=== PATIENT | female | born 1990 | race Caucasian/White ===

== ENCOUNTER 2019-02-02 17:40 | Emergency (ER) | payer BC ==
[2019-02-02] MEDS ORDERED: Albuterol/Ipratropium 3.0-0.5 MG/3 ML Neb Soln NEB ONE (17:45)
--- NOTE | 2019-02-02 17:47 | EDM.PDOC ---
ED HPI GENERAL MEDICAL PROBLEM - General Chief Complaint: Respiratory Problem Stated Complaint: PINK EYE & TIGHTNESS IN CHEST Time Seen by Provider: 02/02/19 17:42 - History of Present Illness INITIAL COMMENTS - FREE TEXT/NARRATIVE: HISTORY AND PHYSICAL: History of present illness: Patient 28-year-old female presents with a concern of pinkeye cough and congestion with wheezing patient is a smoker she denies fever chills nausea vomiting or other complaints. Review of systems: As per history of present illness and below otherwise all systems reviewed and negative. Past medical history: As per history of present illness and as reviewed below otherwise noncontributory. Surgical history: As per history of present illness and as reviewed below otherwise noncontributory. Social history: No reported history of drug or alcohol abuse. Family history: As per history of present illness and as reviewed below otherwise noncontributory. Physical exam: HEENT: Atraumatic, normocephalic, pupils reactive, injected right conjunctiva anterior chamber clear no evidence of corneal abrasion foreign-body no scleral icterus, mucous membranes moist, throat clear, neck supple, nontender, trachea midline. Lungs: Inspiratory next grew wheezing noted no crackles no rhonchi, breath sounds equal bilaterally, chest nontender. Heart: S1S2, regular, negative for clicks, rubs, or JVD. Abdomen: Soft, nondistended, nontender. Negative for masses or hepatosplenomegaly. Negative for costovertebral tenderness. Pelvis: Stable nontender. Genitourinary: Deferred. Rectal: Deferred. Extremities: Atraumatic, negative for cords or calf pain. Neurovascular unremarkable. Neuro: Awake, alert, oriented. Cranial nerves II through XII unremarkable. Cerebellum unremarkable. Motor and sensory unremarkable throughout. Exam nonfocal. Diagnostics: EKG Therapeutics: Albuterol ipratropium nebulizer Impression: #1 trach of bronchitis #2 right conjunctiva Definitive disposition and diagnosis as appropriate pending reevaluation and review of above. - Related Data Allergies Allergy/AdvReac Type Severity Reaction Status Date / Time cefaclor [From Ceclor] Allergy Rash Verified 02/02/19 17:43 cephalexin monohydrate Allergy Rash Verified 02/02/19 17:43 [From Keflex] Home Meds: Home Meds . 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: Musculoskeletal History: Reports: None Neurological History: Reports: None Psychiatric History: Reports: None Endocrine/Metabolic History: Reports: None Hematologic History: Reports: None (Pt denies any personal or family hx of bleeding or clotting problems) Oncologic (Cancer) History: Reports: None Dermatologic History: Reports: None - Infectious Disease History Infectious Disease History: Reports: Chicken Pox - Past Surgical History Female Surgical History: Reports: Other (See Below) Social & Family History - Family History Family Medical History: Noncontributory ED ROS GENERAL - Review of Systems Review Of Systems: ROS reveals no pertinent complaints other than HPI. ED EXAM, GENERAL - Physical Exam Exam: See Below (See dictation) Course - Orders/Labs/Meds Orders: Active Orders 24 hr Category Date Time Status EKG Documentation Completion [RC] STAT Care 02/02/19 17:43 Ordered Departure - Departure Time of Disposition: 17:46 Disposition: Home, Self-Care 01 Condition: Good Clinical Impression: Conjunctivitis, Tracheobronchitis - Discharge Information Additional Instructions: The following information is given to patients seen in the emergency department who are being discharged to home. This information is to outline your options for follow-up care. We provide all patients seen in our emergency department with a follow-up referral. The need for follow-up, as well as the timing and circumstances, are variable depending upon the specifics of your emergency department visit. If you don't have a primary care physician on staff, we will provide you with a referral. We always advise you to contact your personal physician following an emergency department visit to inform them of the circumstance of the visit and for follow-up with them and/or the need for any referrals to a consulting specialist. The emergency department will also refer you to a specialist when appropriate. This referral assures that you have the opportunity for followup care with a specialist. All of these measure are taken in an effort to provide you with optimal care, which includes your followup. Under all circumstances we always encourage you to contact your private physician who remains a resource for coordinating your care. When calling for followup care, please make the office aware that this follow-up is from your recent emergency room visit. If for any reason you are refused follow-up, please contact the [facility] emergency department at and asked to speak to the emergency department charge nurse. JUAN [facility] [address] [place] [id number] Tobrex ophthalmic drops as directed Z-Brennan albuterol as prescribed follow-up primary care call schedule routine appointment return as needed as discussed - My Orders Last 24 Hours: My Active Orders 02/02/19 17:43 EKG Documentation Completion [RC] STAT - Assessment/Plan Last 24 Hours: My Active Orders 02/02/19 17:43 EKG Documentation Completion [RC] STAT
[2019-02-02 19:16] VITALS: BP 139/72
== END 2019-02-02 18:41 | disposition home or self-care (01) ==
LOC: MW.ED 17:40
DX: J40 Bronchitis, not specified as acute or chronic (principal); H10.9 Unspecified conjunctivitis; Z88.8 Allergy status to other drugs, medicaments and biological substances; Z88.1 Allergy status to other antibiotic agents
CPT/HCPCS: 93005; 94640; 99283-25; J7620-GY

== ENCOUNTER 2021-04-18 13:38 | Emergency (ER) | payer BC, MEDICAID ==
[2021-04-18] MEDS ORDERED: Ondansetron 4 MG Tab.DIS PO ONE (14:32)
[2021-04-18] MEDS ORDERED: Codeine/Promethazine 10-6.25 MG/5 ML Syrup 5 ML UD Cup PO STA (14:37)
--- NOTE | 2021-04-18 15:14 | EDM.PDOC ---
ED HPI GENERAL MEDICAL PROBLEM - General Chief Complaint: General Stated Complaint: CHILLS,NAUSEATED,COUGH,LIGHTHEADED Time Seen by Provider: 04/18/21 13:45 Source of Information: Reports: Patient History Limitations: Reports: No Limitations - History of Present Illness INITIAL COMMENTS - FREE TEXT/NARRATIVE: HISTORY AND PHYSICAL: History of present illness: Patient is a 30-year-old female who presents to the emergency room with complaints of nausea, cough, body aches and chills. She states she has had these symptoms over the past 3 days, yesterday noted she had a fever of 103. She has been using [id number] cough and cold medication without much relief. She does have some concern of COVID-19. She has not had this nor been vaccinated. Patient denies any change in vision, syncope or near syncope. Denies any chest pain, back pain, shortness of breath or hemoptysis. Denies any abdominal pain, vomiting, diarrhea, constipation or dysuria. Has not noted any blood in urine or stool. She has no concern for . Patient has been eating and drinking appropriately. Review of systems: As per history of present illness and below otherwise all systems reviewed and negative. Past medical history: As per history of present illness and as reviewed below otherwise noncontributory. Surgical history: As per history of present illness and as reviewed below otherwise noncontributory. Social history: See social history for further information Family history: As per history of present illness and as reviewed below otherwise noncontributory. Physical exam: General: Well developed and well nourished. Alert and orientated x 3. Nontoxic in appearance and in no acute distress. Vital signs are stable and have been reviewed by me. Nursing notes were reviewed. HEENT: Atraumatic, normocephalic, pupils equal and reactive bilaterally, negative for conjunctival pallor or scleral icterus, mucous membranes moist, TMs normal bilaterally, throat clear, neck supple, nontender, trachea midline. No drooling or trismus noted. No meningeal signs. No hot potato voice noted. Lungs: Slightly diminished to auscultation bilaterally. No wheezes, rales, or rhonchi. Chest nontender. Normal work of breathing, no accessory muscles used. Heart: S1S2, regular rate and rhythm without overt murmur, gallops, or rubs. No JVD. No peripheral edema Abdomen: Soft, nondistended, nontender. Normoactive bowel sounds. Negative for masses or costovertebral tenderness. Skin: Intact, warm, dry. No lesions or rashes noted. Hematologic: No petechiae or purpra. Mucosa appropriate color and normal nail bed color and refill. Extremities: Atraumatic, moves all extremities per self without difficulty or deficits, negative for cords or calf pain. Neurovascular unremarkable. Neuro: Awake, alert, oriented. Cranial nerves II through XII unremarkable. Cerebellum unremarkable. Motor and sensory unremarkable throughout. Exam nonfocal. Psychiatric: Mood and affect are appropriate. Normal thought process. Answering questions appropriately. Notes: *This patient was seen and evaluated during the 2019 SARS-CoV-2 novel coronavirus pandemic period. Community viral transmission is ongoing at time of this encounter and the emergency department is operating under pandemic response procedures. Patient is a 30-year-old female who presents to the emergency room with respiratory type symptoms x3 days. We will do some basic lab work and swab for COVID-19. Lab work is unremarkable. Chest x-ray shows no acute findings. I do have concern of COVID-19, did request if she still symptomatic on Tuesday that she gets retested at the clinic. I have talked with the patient about today's findings, in addition to providing specific details for plan of care. Reassessment at the time of disposition demonstrates that the patient is in no acute distress. The patient is stable for discharge, counseling was provided and we discussed in great detail signs and symptoms that would prompt them to return to the Emergency Department. Medication, follow up and supportive care measures were reviewed and discussed. Voices understanding and is agreeable to plan of care. Denies any further questions or concerns at this time. Diagnostics: CBC, CMP, COVID-19, UA, chest x-ray Therapeutics: Phenergan with codeine Prescription: Z-Brennan, Phenergan with codeine Impression: Bronchitis Plan: 1. You were evaluated today on an emergent basis. Your lab work and chest x-ray are unremarkable. I would like you to be retested for COVID-19 on Tuesday if you continue to have symptoms as I am concerned you have a false negative at this time. Continue to wear your mask, good handwashing and abstain from large crowds until you have this test done. 2. You can alternate Tylenol and ibuprofen as needed for pain and fever management. 3. We encourage you to follow up with your primary care provider and/or recommended specialist in the next few days for re-evaluation and further care/management. 4. If your symptoms should worsen, new symptoms develop or any of the signs and symptoms we discussed should arise please return to the emergency room or call 911 (if needed). Definitive disposition and diagnosis as appropriate pending reevaluation and review of above. Headache Pain Score (Numeric/FACES): 7 - Related Data Allergies Allergy/AdvReac Type Severity Reaction Status Date / Time cefaclor [From Ceclor] Allergy Rash Verified 04/18/21 14:39 cephalexin monohydrate Allergy Rash Verified 04/18/21 14:39 [From Keflex] Home Meds: Home Meds . 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: Musculoskeletal History: Reports: None Neurological History: Reports: None Psychiatric History: Reports: None Endocrine/Metabolic History: Reports: None Hematologic History: Reports: None Oncologic (Cancer) History: Reports: None Dermatologic History: Reports: None - Infectious Disease History Infectious Disease History: Reports: Chicken Pox - Past Surgical History Head Surgeries/Procedures: Reports: None HEENT Surgical History: Reports: None Cardiovascular Surgical History: Reports: None Respiratory Surgical History: Reports: None GI Surgical History: Reports: Cholecystectomy Female Surgical History: Reports: Other (See Below) Other Female Surgeries/Procedures: cervical cerclage x2 Endocrine Surgical History: Reports: None Neurological Surgical History: Reports: None Musculoskeletal Surgical History: Reports: None Oncologic Surgical History: Reports: None Dermatological Surgical History: Reports: None Social & Family History - Family History Family Medical History: No Pertinent Family History - Tobacco Use Tobacco Use Status *Q: Never Tobacco User Second Hand Smoke Exposure: No - Caffeine Use Caffeine Use: Reports: Coffee - Recreational Drug Use Recreational Drug Use: No ED ROS GENERAL - Review of Systems Review Of Systems: Comprehensive ROS is negative, except as noted in HPI. ED EXAM, GENERAL - Physical Exam Exam: See Below (See dictation) Course - Vital Signs Last Recorded V/S: Last Vital Signs Temp 97.6 F 04/18/21 14:39 Pulse 76 04/18/21 16:17 Resp 16 04/18/21 16:17 BP 141/70 H 04/18/21 16:17 Pulse Ox 98 04/18/21 16:17 - Orders/Labs/Meds Labs: Laboratory Tests 04/18/21 04/18/21 04/18/21 Range/Units 14:46 14:55 14:55 WBC 7.45 (4.0-11.0) K/uL RBC 4.45 (4.30-5.90) M/uL Hgb 14.8 (12.0-16.0) g/dL Hct 44.1 (36.0-46.0) % MCV 99.1 H (80.0-98.0) fL MCH 33.3 H (27.0-32.0) pg MCHC 33.6 (31.0-37.0) g/dL RDW Std Deviation 44.9 (28.0-62.0) fl RDW Coeff of Imani 12 (11.0-15.0) % Plt Count 288 (150-400) K/uL MPV 10.50 (7.40-12.00) fL Neut % (Auto) 52.8 (48.0-80.0) % Lymph % (Auto) 33.7 (16.0-40.0) % Kimble % (Auto) 6.7 (0.0-15.0) % Eos % (Auto) 6.4 (0.0-7.0) % Baso % (Auto) 0.4 (0.0-1.5) % Neut # (Auto) 3.9 (1.4-5.7) K/uL Lymph # (Auto) 2.5 H (0.6-2.4) K/uL Kimble # (Auto) 0.5 (0.0-0.8) K/uL Eos # (Auto) 0.5 (0.0-0.7) K/uL Baso # (Auto) 0.0 (0.0-0.1) K/uL Nucleated RBC % 0.0 /100WBC Nucleated RBCs # 0 K/uL Sodium 136 (136-145) mmol/L Potassium 4.3 (3.5-5.1) mmol/L Chloride 104 (98-107) mmol/L Carbon Dioxide 24.5 (21.0-32.0) mmol/L BUN 11 (7.0-18.0) mg/dL Creatinine 0.8 (0.6-1.0) mg/dL Est Cr Clr Drug Dosing 88.79 mL/min Estimated GFR (MDRD) > 60.0 ml/min Glucose 114 H (74-106) mg/dL Calcium 8.3 L (8.5-10.1) mg/dL Total Bilirubin 0.2 (0.2-1.0) mg/dL AST 18 (15-37) IU/L ALT 36 (14-63) IU/L Alkaline Phosphatase 91 (46-116) U/L Total Protein 7.4 (6.4-8.2) g/dL Albumin 3.6 (3.4-5.0) g/dL Globulin 3.8 (2.6-4.0) g/dL Albumin/Globulin Ratio 0.9 (0.9-1.6) Influenza Type A RNA NEGATIVE (NEGATIVE) Influenza Type B RNA NEGATIVE (NEGATIVE) SARS-CoV-2 RNA (AMANDA) NEGATIVE (NEGATIVE) Meds: Medications Discontinued Medications Generic Name Dose Route Start Last Admin Trade Name Freq PRN Reason Stop Dose Admin Ondansetron HCl 4 mg 04/18/21 14:32 04/18/21 14:48 Ondansetron 4 Mg Tab.Dis PO 04/18/21 14:33 4 mg ONETIME ONE Administration Promethazine HCl/Codeine 5 ml 04/18/21 14:37 04/18/21 14:48 Codeine/Promethazine 10-6.25 Mg/5 Ml Syrup 5 Ml Ud Cup PO 04/18/21 14:38 5 ml NOW STA Administration Departure - Departure Time of Disposition: 16:04 Disposition: Home, Self-Care 01 Clinical Impression: Bronchitis - Discharge Information Instructions: Acute Bronchitis, Adult, [id number] Referrals: PCP,None [Primary Care Provider] - Forms: ED Department Discharge Additional Instructions: The following information is given to patients seen in the emergency department who are being discharged to home. This information is to outline your options for follow-up care. We provide all patients seen in our emergency department with a follow-up referral. The need for follow-up, as well as the timing and circumstances, are variable depending upon the specifics of your emergency department visit. If you don't have a primary care physician on staff, we will provide you with a referral. We always advise you to contact your personal physician following an emergency department visit to inform them of the circumstance of the visit and for follow-up with them and/or the need for any referrals to a consulting specialist. The emergency department will also refer you to a specialist when appropriate. This referral assures that you have the opportunity for follow-up care with a specialist. All of these measure are taken in an effort to provide you with optimal care, which includes your follow-up. Under all circumstances we always encourage you to contact your private physician who remains a resource for coordinating your care. When calling for follow-up care, please make the office aware that this follow-up is from your recent emergency room visit. If for any reason you are refused follow-up, please contact the [facility] Emergency Department at and asked to speak to the emergency department charge nurse. [facility] [address] [place] [address] [place] [address] Thank you for choosing the [facility] emergency department in [place] for your medical needs today. It was a pleasure caring for you. Today you were seen in the emergency department for respiratory symptoms. 1. You were evaluated today on an emergent basis. Your lab work and chest x-ray are unremarkable. I would like you to be retested for COVID-19 on Tuesday if you continue to have symptoms as I am concerned you have a false negative at this time. Continue to wear your mask, good handwashing and abstain from large crowds until you have this test done. 2. You can alternate Tylenol and ibuprofen as needed for pain and fever management. 3. We encourage you to follow up with your primary care provider and/or recommended specialist in the next few days for re-evaluation and further care/management. 4. If your symptoms should worsen, new symptoms develop or any of the signs and symptoms we discussed should arise please return to the emergency room or call 911 (if needed). Sepsis Event Note (ED) - Evaluation Sepsis Screening Result: No Definite Risk - Focused Exam Vital Signs: Vital Signs Temp Pulse Resp BP Pulse Ox 04/18/21 16:17 76 16 141/70 H 98 04/18/21 14:39 97.6 F 81 17 141/87 H 97
[2021-04-18 15:33] LABS: BLOOD UREA NITROGEN,BUN 11 mg/dL (7.0-18.0); CARBON DIOXIDE,CO2 24.5 mmol/L (21.0-32.0); CHLORIDE,CL 104 mmol/L (98-107); GLUCOSE RANDOM 114 mg/dL (74-106); POTASSIUM,K 4.3 mmol/L (3.5-5.1); SODIUM,NA 136 mmol/L (136-145)
[2021-04-18 15:41] LABS: CORONAVIRUS COVID-19 NAA NEGATIVE (NEGATIVE); INFLUENZA A NAA NEGATIVE (NEGATIVE); INFLUENZA B NAA NEGATIVE (NEGATIVE)
[2021-04-18 16:18] VITALS: BP 141/70; PULSE 76
--- NOTE | 2021-04-18 16:39 | CR ---
INDICATION: Chest pain TECHNIQUE: Single view chest. FINDINGS: The lungs are clear. The heart, mediastinum and pulmonary vessels are of normal size. There is no evidence of pleural disease. IMPRESSION: Negative chest. Dictated by Barbara Mccollum MD @ 04/18/2021 4:37:[address] Barbara Mccollum @ Apr 18 2021 4:37PM
== END 2021-04-18 16:18 | disposition home or self-care (01) ==
LOC: MW.ED 13:38
DX: J40 Bronchitis, not specified as acute or chronic (principal); Z88.1 Allergy status to other antibiotic agents; Z20.822 Contact with and (suspected) exposure to COVID-19
CPT/HCPCS: 0240U; 36415; 71045; 80053; 85025; 99283; A9270

== ENCOUNTER 2021-11-02 06:33 | Day surgery (SDC) | payer MEDICAID ==
[~2021-11-02 06:33] MED LIST: Lactated Ringers 1,000 ML IV SCH; Sodium Chloride 0.9% 10 ML Syringe FLUSH PRN; Sodium Chloride 0.9% 2.5 ML Syringe FLUSH PRN; Sodium Chloride 0.9% 20 ML SDV IV PRN
[2021-11-02] MEDS ORDERED: Sodium Chloride 0.9% 10 ML Syringe FLUSH PRN (07:00)
[2021-11-02] MEDS ORDERED: Sodium Chloride 0.9% 20 ML SDV IV PRN (07:00)
[2021-11-02] MEDS ORDERED: Azithromycin 500 MG in Sodium Chloride 0.9% 250 ML IV ONE (07:00)
[2021-11-02] MEDS ORDERED: Sodium Chloride 0.9% 2.5 ML Syringe FLUSH PRN (07:00)
[2021-11-02] MEDS ORDERED: Ondansetron 4 MG/2 ML SDV IVPUSH PRN (07:40)
[2021-11-02] MEDS ORDERED: Albuterol 0.083% 2.5 MG/3 ML Neb Soln NEB PRN (07:40)
[2021-11-02] MEDS ORDERED: Naloxone 0.4 MG/ML SDV IVPUSH PRN (07:40)
[2021-11-02] MEDS ORDERED: Metoclopramide 10 MG/2 ML SDV IVPUSH PRN (07:40)
[2021-11-02] MEDS ORDERED: fentaNYL 100 MCG/2 ML SDV IVPUSH PRN (07:40)
--- NOTE | 2021-11-02 07:45 | PCM.PREANE ---
Preanesthetic Assessment - Anesthesia/Transfusion/Family Hx Anesthesia History: Prior Anesthesia Without Reaction Family History of Anesthesia Reaction: No Transfusion History: No Prior Transfusion(s) - Review of Systems General: No Symptoms Pulmonary: Cough Cardiovascular: No Symptoms Gastrointestinal: No Symptoms Neurological: No Symptoms Other: Reports: None - Physical Assessment NPO Status Date: 11/02/21 NPO Status Time: 00:00 Vital Signs: Last Vital Signs Temp 96.6 F L 11/02/21 06:32 Pulse 89 11/02/21 06:32 Resp 16 11/02/21 06:32 BP 116/75 11/02/21 06:32 Pulse Ox 97 11/02/21 06:32 Height: 5 ft 5 in Weight: 203 lb ASA Class: 3 Mental Status: Alert & Oriented x3 Airway Class: Mallampati = 2 Dentition: Reports: Normal Dentition Thyro-Mental Finger Breadths: 3 Mouth Opening Finger Breadths: 3 ROM/Head Extension: Full Lungs: Clear to Auscultation, Normal Respiratory Effort Cardiovascular: Regular Rate, Regular Rhythm - Allergies Allergies/Adverse Reactions: Allergies Allergy/AdvReac Type Severity Reaction Status Date / Time cefaclor [From Ceclor] Allergy Rash Verified 10/27/21 12:08 cephalexin monohydrate Allergy Rash Verified 10/27/21 12:08 [From Keflex] - Blood Blood Available: No - Acknowledgements Anesthesia Type Planned: Spinal Pt an Appropriate Candidate for the Planned Anesthesia: Yes Alternatives and Risks of Anesthesia Discussed w Pt/Guardian: Yes Pt/Guardian Understands and Agrees with Anesthesia Plan: Yes PreAnesthesia Questionnaire - Past Health History Medical/Surgical History: Denies Medical/Surgical History HEENT History: Reports: None Cardiovascular History: Reports: None Respiratory History: Reports: None Gastrointestinal History: Reports: None Genitourinary History: Reports: None 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: Musculoskeletal History: Reports: None Neurological History: Reports: Concussion Psychiatric History: Reports: None Endocrine/Metabolic History: Reports: Obesity/BMI 30+ Hematologic History: Reports: None Oncologic (Cancer) History: Reports: None Dermatologic History: Reports: None - Infectious Disease History Infectious Disease History: Reports: Chicken Pox - Past Surgical History Head Surgeries/Procedures: Reports: None HEENT Surgical History: Reports: None Cardiovascular Surgical History: Reports: None Respiratory Surgical History: Reports: None GI Surgical History: Reports: Cholecystectomy Female Surgical History: Reports: Other (See Below) Other Female Surgeries/Procedures: cervical cerclage x3 Endocrine Surgical History: Reports: None Neurological Surgical History: Reports: None Musculoskeletal Surgical History: Reports: None Oncologic Surgical History: Reports: None Dermatological Surgical History: Reports: None - SUBSTANCE USE Tobacco Use Status *Q: Current Every Day Tobacco User Tobacco Use Within Last Twelve Months: Cigarettes Recreational Drug Use History: No - HOME MEDS Home Medications: Home Meds Pre-Phani Vitamin 1 tab PO DAILY 10/27/21 [History] - CURRENT (IN HOUSE) MEDS Current Meds: Current Medications Azithromycin 500 mg/ Sodium (Chloride) 250 mls @ 250 mls/hr IV ONETIME ONE Stop: 11/02/21 07:59 Last Admin: 11/02/21 07:37 Dose: 250 mls/hr Documented by: Lactated Ringer's (Ringers, Lactated) 1,000 mls @ 100 mls/hr IV ASDIRECTED MAAME Last Admin: 11/02/21 06:59 Dose: 100 mls/hr Documented by: Sodium Chloride (Sodium Chloride 0.9% 10 Ml Syringe) 10 ml FLUSH ASDIRECTED PRN PRN Reason: Keep Vein Open Sodium Chloride (Sodium Chloride 0.9% 2.5 Ml Syringe) 2.5 ml FLUSH ASDIRECTED PRN PRN Reason: Keep Vein Open Sodium Chloride (Sodium Chloride 0.9% 20 Ml Sdv) 10 ml IV ASDIRECTED PRN PRN Reason: IV Use Discontinued Medications Sodium Chloride (Sodium Chloride 0.9% 10 Ml Syringe) 10 ml FLUSH ASDIRECTED PRN PRN Reason: Keep Vein Open Sodium Chloride (Sodium Chloride 0.9% 2.5 Ml Syringe) 2.5 ml FLUSH ASDIRECTED PRN PRN Reason: Keep Vein Open Sodium Chloride (Sodium Chloride 0.9% 20 Ml Sdv) 10 ml IV ASDIRECTED PRN PRN Reason: IV Use
[2021-11-02] MEDS ORDERED: ePHEDrine 50 MG/ML SDV ONE (08:29)
--- NOTE | 2021-11-02 08:47 | PCM.POSTAN ---
POST ANESTHESIA ASSESSMENT - MENTAL STATUS Mental Status: Alert, Oriented - VITAL SIGNS Vital Signs: Last Vital Signs Temp 96.6 F L 11/02/21 06:32 Pulse 89 11/02/21 06:32 Resp 16 11/02/21 06:32 BP 116/75 11/02/21 06:32 Pulse Ox 97 11/02/21 06:32 - RESPIRATORY Respiratory Status: Respiratory Rate WNL, Airway Patent, O2 Saturation Stable - CARDIOVASCULAR CV Status: Pulse Rate WNL, Blood Pressure Stable - GASTROINTESTINAL GI Status: No Symptoms - POST OP HYDRATION Hydration Status: Adequate & Stable
--- NOTE | 2021-11-02 08:49 | PCM48HPAN ---
Post Anesthesia Note - EVALUATION WITHIN 48HRS OF ANESTHETIC Vital Signs in Normal Range: Yes Patient Participated in Evaluation: Yes Respiratory Function Stable: Yes Airway Patent: Yes Cardiovascular Function Stable: Yes Hydration Status Stable: Yes Pain Control Satisfactory: Yes Nausea and Vomiting Control Satisfactory: Yes Mental Status Recovered: Yes Vital Signs: Last Vital Signs Temp 96.6 F L 11/02/21 06:32 Pulse 89 11/02/21 06:32 Resp 16 11/02/21 06:32 BP 116/75 11/02/21 06:32 Pulse Ox 97 11/02/21 06:32
[2021-11-02] MEDS ORDERED: Acetaminophen/HYDROcodone 325-5 MG Tab PO PRN (08:55)
[2021-11-02 09:44] VITALS: BP 123/67; PULSE 88
[2021-11-02] MEDS ORDERED: Dexamethasone 4 MG/ML 5 ML MDV ONE ×2 (10:07→10:09)
[2021-11-02] MEDS ORDERED: Ondansetron 4 MG/2 ML SDV ONE ×2 (10:07→10:09)
[2021-11-02] MEDS ORDERED: Ketorolac 30 MG/ML SDV ONE (10:07)
--- NOTE | 2021-11-03 20:19 | OR ---
SURGEON: Leandro Anguiano MD DATE OF PROCEDURE: 11/02/2021 INDICATION FOR PROCEDURE: A 31-year-old G5, P2-2-0-4, presented with history of cervical insufficiency, presenting for scheduled cerclage. The patient has a history of delivery at 38 weeks, and the next had funneling of the cervix on screening ultrasound and had a cerclage for cervical insufficiency. For her 2 following pregnancies, she also had cerclage as well and delivered at term. The patient was evaluated with dating ultrasound with a viable , and she is 13 weeks and 1 day today. PREOPERATIVE DIAGNOSES: 1. Cervical insufficiency. 2. History of delivery. POSTOPERATIVE DIAGNOSES: 1. Cervical insufficiency. 2. History of delivery. PROCEDURE PERFORMED: Benito cervical cerclage. REVERSE UNIT OPERATOR: Sharee Pereira M.D. ANESTHESIA: Spinal anesthesia. ANESTHESIOLOGIST: Dr. Glenn Thayer. Ty Enriquez CRNA. IV FLUIDS: 1700 mL. URINE OUTPUT: 45 mL. FINDINGS: Cervix appeared normal length, was already 1 cm dilated. A 13-week uterus. No adnexal masses. heart rate was confirmed prior to and after the procedure. DESCRIPTION OF PROCEDURE: The patient was consented and the risks of bleeding, infection, delivery and rupture of membranes, injury to surrounding organs were discussed with her. Questions answered and consent signed. She was taken to the operating room and placed under spinal anesthesia. She was placed in dorsal lithotomy position with her legs supported using stirrups. She was prepped with Betadine in sterile fashion. Her bladder was emptied with straight catheter of approximately 45 mL of clear yellow urine. A bimanual exam was done. The uterus was about 13-week size, anteverted, and mobile. No adnexal masses were found. The cervix was normal lying but was 1 cm dilated. A weighted speculum was placed in the posterior aspect of the vagina and the anterior vaginal wall was retracted with a right angle extractor. The anterior lip of the cervix was grasped with an Allis clamp. A suture was placed with 1-0 Ethibond suture near the level of the internal os starting from 12 o'clock to 9 o'clock, then 9 o'clock to 6 o'clock, followed by 6 o'clock to 3 o'clock and coming back to 12 o'clock. An additional suture was placed in similar fashion at about half a centimeter above the previous suture right below the level of the bladder reflection. Both sutures were then carefully tied down to close the cervical loss. The cervix was noted to be closed and long at the end of the procedure. No signs of bleeding or rupture of membranes. The patient tolerated the procedure well, was brought to the recovery room in stable condition. SHAHEEN / JAH /[id number]
== END 2021-11-02 10:30 | disposition home or self-care (01) ==
LOC: MW.SDS 06:33
PROVIDERS: ATTEND Obstetrics & Gynecology
DX: O34.31 Maternal care for cervical incompetence, first trimester (principal); F17.210 Nicotine dependence, cigarettes, uncomplicated; N76.0 Acute vaginitis; E66.9 Obesity, unspecified; Z88.2 Allergy status to sulfonamides; Z79.899 Other long term (current) drug therapy; Z90.49 Acquired absence of other specified parts of digestive tract; Z98.890 Other specified postprocedural states; Z3A.13 13 weeks gestation of pregnancy; Z87.51 Personal history of pre-term labor
CPT/HCPCS: 59320; J0456; J1100; J2405; J7050; J7120; 00948; J1885; J2370

== ENCOUNTER 2022-04-30 04:17 | Inpatient (IN) | payer MEDICAID ==
[2022-04-30] MEDS ORDERED: Oxytocin/0.9 % Sodium Chloride 30 UNIT/500 ML BAG ONE (04:36)
[2022-04-30] MEDS ORDERED: Sodium Chloride 0.9% 10 ML Syringe FLUSH PRN (04:43)
[2022-04-30] MEDS ORDERED: Butorphanol 1 MG/ML SDV IVPUSH PRN (04:43)
[2022-04-30] MEDS ORDERED: Ondansetron 4 MG/2 ML SDV IVPUSH PRN (04:43)
[2022-04-30] MEDS ORDERED: Sodium Chloride 0.9% 2.5 ML Syringe FLUSH PRN (04:43)
[2022-04-30] MEDS ORDERED: Misoprostol 200 MCG Tab PO PRN (04:43)
[2022-04-30] MEDS ORDERED: Methylergonovine 0.2 MG/1 ML Amp IM PRN (04:43)
[2022-04-30] MEDS ORDERED: Sodium Chloride 0.9% 20 ML SDV IV PRN (04:43)
[2022-04-30] MEDS ORDERED: Lidocaine 1% 50 ML MDV INJECT PRN (04:43)
[2022-04-30] MEDS ORDERED: Water For Irrigation,Sterile 1,000 ML Container IRR PRN (04:43)
[2022-04-30] MEDS ORDERED: Tranexamic Acid 1,000 MG in Sodium Chloride 0.9% 100 ML IV PRN (04:43)
[2022-04-30] MEDS ORDERED: Carboprost Tromethamine 250 MCG/1 ML Amp IM PRN (04:43)
[2022-04-30] MEDS ORDERED: Oxytocin/0.9 % Sodium Chloride 30 UNIT/500 ML BAG IV SCH (04:45)
[2022-04-30] MEDS ORDERED: Lactated Ringers 1,000 ML IV SCH (04:45)
[2022-04-30] MEDS ORDERED: Ketorolac 30 MG/ML SDV IVPUSH ONE (05:32)
[2022-04-30] MEDS ORDERED: Benzocaine/Menthol 20%-0.5% Spray 78 GM Cannister TOP PRN (08:29)
[2022-04-30] MEDS ORDERED: Bisacodyl 10 MG Supp RECTAL PRN (08:29)
[2022-04-30] MEDS ORDERED: Acetaminophen 500 MG Tab PO PRN (08:29)
[2022-04-30] MEDS ORDERED: oxyCODONE 5 MG Tab PO PRN (08:29)
[2022-04-30] MEDS ORDERED: Lanolin 100% Cream 7 GM Tube TOP PRN (08:29)
[2022-04-30] MEDS ORDERED: Ibuprofen 400 MG Tab PO PRN (08:29)
[2022-04-30] MEDS ORDERED: Witch Hazel Medicated Pads 40/Jar TOP PRN (08:29)
[2022-04-30] MEDS ORDERED: Meropenem 500 MG in Sodium Chloride 0.9% 100 ML IV SCH (08:45)
[2022-04-30] MEDS: Ertapenem 1 GM in Sodium Chloride 0.9% 50 ML IV SCH (09:58)
[2022-04-30] MEDS: Acetaminophen 500 MG Tab PO PRN ×2 (10:23→17:54)
[2022-04-30] MEDS: Docusate Sodium 100 MG Cap PO PRN (10:23)
[2022-04-30] MEDS: Ibuprofen 800 MG Tab PO PRN ×2 (15:23→22:24)
[2022-05-01] MEDS: Ertapenem 1 GM in Sodium Chloride 0.9% 50 ML IV SCH (09:57)
[2022-05-01] MEDS: Ibuprofen 800 MG Tab PO PRN (13:05)
[2022-05-02] MEDS: Ibuprofen 800 MG Tab PO PRN (08:03)
[2022-05-02 08:18] VITALS: BP 129/78; PULSE 81
[2022-05-02] MEDS: Ertapenem 1 GM in Sodium Chloride 0.9% 50 ML IV SCH (09:58)
[2022-05-02] MEDS: Docusate Sodium 100 MG Cap PO PRN (13:50)
== END 2022-05-02 17:50 | disposition home or self-care (01) | DRG 807 ==
LOC: MW.OB 04:17 → OBSVTOIN 05:18 → MW.OB 05:18
PROVIDERS: ADMIT Obstetrics & Gynecology; ATTEND Obstetrics & Gynecology
PROC: 10E0XZZ Delivery of Products of Conception, External Approach (ICD-10-PCS; principal; 2022-04-30)
DX: O99.214 Obesity complicating childbirth (principal); Z37.0 Single live birth; Z20.822 Contact with and (suspected) exposure to COVID-19; Z3A.39 39 weeks gestation of pregnancy; Z90.49 Acquired absence of other specified parts of digestive tract
CPT/HCPCS: 36415; 59025; 59409; 85014; 85018; 85027; 86592; 86850; 86900; 86901; A9270-GY; J1335; J1885; J2590; J7120; U0002

== ENCOUNTER 2022-09-15 10:03 | Emergency (ER) | payer MEDICAID ==
[2022-09-15] MEDS ORDERED: Acetaminophen/Codeine 120-12 MG/5 ML Soln 5 ML UD Cup PO ONE (10:38)
[2022-09-15 11:09] LABS: CORONAVIRUS COVID-19 NAA POSITIVE (NEGATIVE); INFLUENZA A NAA NEGATIVE (NEGATIVE); INFLUENZA B NAA NEGATIVE (NEGATIVE)
[2022-09-15 11:36] VITALS: BP 129/84; PULSE 103
== END 2022-09-15 11:34 | disposition home or self-care (01) ==
LOC: MW.ED 10:03
DX: U07.1 COVID-19 (principal); E66.9 Obesity, unspecified; Z68.29 Body mass index [BMI] 29.0-29.9, adult; Z88.1 Allergy status to other antibiotic agents; Z79.899 Other long term (current) drug therapy; Z90.49 Acquired absence of other specified parts of digestive tract
CPT/HCPCS: 0240U; 71045; 99283; A9270

== ENCOUNTER 2023-05-24 04:36 | Inpatient (IN) | payer SELFPAY ==
[2023-05-24] MEDS ORDERED: Tranexamic Acid 1,000 MG in Sodium Chloride 0.9% 100 ML IV PRN (04:49)
[2023-05-24] MEDS ORDERED: Sodium Chloride 0.9% 10 ML Syringe FLUSH PRN (04:49)
[2023-05-24] MEDS ORDERED: Ibuprofen 800 MG Tab PO PRN (04:49)
[2023-05-24] MEDS ORDERED: Witch Hazel Medicated Pads 40/Jar TOP PRN (04:49)
[2023-05-24] MEDS ORDERED: Docusate Sodium 100 MG Cap PO PRN (04:49)
[2023-05-24] MEDS ORDERED: oxyCODONE 5 MG Tab PO PRN (04:49)
[2023-05-24] MEDS ORDERED: Sodium Chloride 0.9% 20 ML SDV IV PRN (04:49)
[2023-05-24] MEDS ORDERED: Lanolin 100% Cream 7 GM Tube TOP PRN (04:49)
[2023-05-24] MEDS ORDERED: Benzocaine/Menthol 20%-0.5% Spray 78 GM Cannister TOP PRN (04:49)
[2023-05-24] MEDS ORDERED: Sodium Chloride 0.9% 2.5 ML Syringe FLUSH PRN (04:49)
[2023-05-24] MEDS ORDERED: Ibuprofen 400 MG Tab PO PRN (04:49)
[2023-05-24] MEDS ORDERED: Methylergonovine 0.2 MG/1 ML Amp IM PRN (04:49)
[2023-05-24] MEDS ORDERED: Lidocaine 1% 50 ML MDV INJECT PRN (04:49)
[2023-05-24] MEDS ORDERED: Carboprost Tromethamine 250 MCG/1 mL Vial IM PRN (04:49)
[2023-05-24] MEDS ORDERED: Butorphanol 1 MG/ML SDV IVPUSH PRN (04:49)
[2023-05-24] MEDS ORDERED: Bisacodyl 10 MG Supp RECTAL PRN (04:49)
[2023-05-24] MEDS ORDERED: Acetaminophen 500 MG Tab PO PRN ×2 (04:49)
[2023-05-24] MEDS ORDERED: Water For Irrigation,Sterile 1,000 ML Container IRR PRN (04:49)
[2023-05-24] MEDS ORDERED: Misoprostol 200 MCG Tab PO PRN (04:49)
[2023-05-24] MEDS ORDERED: Oxytocin/0.9 % Sodium Chloride 30 UNIT/500 ML BAG IV SCH (05:00)
[2023-05-24] MEDS ORDERED: Lactated Ringers 1,000 ML IV SCH (05:00)
[2023-05-24 06:05] LABS: BASOPHILS PERCENT AUTO 0.2 % (0.0-1.5); EOSINOPHILS ABSOLUTE AUTO 0.1 K/uL (0.0-0.7); EOSINOPHILS PERCENT AUTO 1.1 % (0.0-7.0); HEMATOCRIT 34.6 % (36.0-46.0); HEMOGLOBIN 11.6 g/dL (12.0-16.0); LYMPHOCYTES ABSOLUTE AUTO 1.7 K/uL (0.6-2.4); LYMPHOCYTES PERCENT AUTO 14.5 % (16.0-40.0); MEAN CORPUSCULAR HEMOGLOBIN 32.9 pg (27.0-32.0); MEAN CORPUSCULAR HGB CONC 33.5 g/dL (31.0-37.0); MONOCYTES ABSOLUTE AUTO 0.7 K/uL (0.0-0.8); MONOCYTES PERCENT AUTO 6.3 % (0.0-15.0); NEUTROPHILS PERCENT AUTO 77.9 % (48.0-80.0); NRBC ABSOLUTE 0 K/uL; PLATELET COUNT,PLT 249 K/uL (150-400); RED BLOOD CELL COUNT 3.53 M/uL (4.30-5.90)
[2023-05-24 06:24] LABS: A/G RATIO 0.6 (0.9-1.6); ALBUMIN 2.4 g/dL (3.4-5.0); BILIRUBIN TOTAL 0.3 mg/dL (0.2-1.0); CALCIUM 8.1 mg/dL (8.5-10.1); CARBON DIOXIDE,CO2 23.9 mmol/L (21.0-32.0); CREATININE 0.7 mg/dL (0.6-1.0); EST CRCL DRUG DOSING (CG) 99.63 mL/min; POTASSIUM,K 3.7 mmol/L (3.5-5.1); PROTEIN TOTAL,TP 6.2 g/dL (6.4-8.2)
[2023-05-24 12:44] LABS: AMPHETAMINES SCREEN, URINE PRESUMPTIVE POSITIVE (CUTOFF=500); BARBITURATE SCREEN,URINE NEGATIVE (CUTOFF=200); BENZODIAZEPINES SCREEN,URINE NEGATIVE (CUTOFF=150); BUPRENORPHINE SCREEN,URINE NEGATIVE (CUTOFF=10); METHADONE SCREEN, URINE NEGATIVE (CUTOFF=200); METHAMPHETAMINES SCREEN, URINE PRESUMPTIVE POSITIVE (CUTOFF=500); OXYCODONE SCREEN,URINE NEGATIVE (CUT0FF=100); PCP SCREEN,URINE NEGATIVE (CUTOFF=25); PROPOXYPHENE SCREEN,URINE NEGATIVE (CUTOFF=300); THC SCREEN,URINE 20 NG/ML PRESUMPTIVE POSITIVE (CUTOFF=50)
[2023-05-24 14:12] LABS: C. TRACHOMATIS BY PCR NOT DETECTED; N. GONORRHOEAE BY PCR NOT DETECTED
[2023-05-25 02:10] LABS: GROUP B STREP BY PCR POSITIVE (NEGATIVE)
[2023-05-25 07:56] VITALS: BP 129/70; PULSE 79
== END 2023-05-25 09:30 | disposition home or self-care (01) | DRG 776 ==
LOC: MW.OB 04:36
PROVIDERS: ADMIT Obstetrics & Gynecology; ATTEND Obstetrics & Gynecology
DX: Z39.0 Encounter for care and examination of mother immediately after delivery (principal); O99.335 Smoking (tobacco) complicating the puerperium; O99.215 Obesity complicating the puerperium; F17.210 Nicotine dependence, cigarettes, uncomplicated; O99.315 Alcohol use complicating the puerperium; Z88.8 Allergy status to other drugs, medicaments and biological substances; Z79.899 Other long term (current) drug therapy; Z90.49 Acquired absence of other specified parts of digestive tract
CPT/HCPCS: 36415; 59414; 80053; 80305-QW; 85025; 86592; 86706; 86762; 86803; 86850; 86900; 86901; 87340; 87389; 87491; 87591; 87653; A9270-GY; J2590

== ENCOUNTER 2024-07-15 01:26 | Observation (INO) | payer MEDICAID ==
[2024-07-15] MEDS ORDERED: Oxytocin/0.9 % Sodium Chloride 0 UNIT/0 ML BAG ONE (01:34)
[2024-07-15] MEDS ORDERED: Water For Irrigation,Sterile 1,000 ML Container IRR PRN (01:38)
[2024-07-15] MEDS ORDERED: Sodium Chloride 0.9% 10 ML Syringe FLUSH PRN (01:38)
[2024-07-15] MEDS ORDERED: Carboprost Tromethamine 250 MCG/1 mL Vial IM PRN (01:38)
[2024-07-15] MEDS ORDERED: Tranexamic Acid IN NACL,ISO-OS 1,000 MG in Premix Bag 1 BAG IV PRN (01:38)
[2024-07-15] MEDS ORDERED: Sodium Chloride 0.9% 2.5 ML Syringe FLUSH PRN (01:38)
[2024-07-15] MEDS ORDERED: Sodium Chloride 0.9% 20 ML SDV IV PRN (01:38)
[2024-07-15] MEDS ORDERED: Butorphanol 2 MG/ML SDV IVPUSH PRN (01:38)
[2024-07-15] MEDS ORDERED: Misoprostol 200 MCG Tab PO PRN (01:38)
[2024-07-15] MEDS ORDERED: Methylergonovine 0.2 MG/1 ML Amp IM PRN (01:38)
[2024-07-15] MEDS ORDERED: Lidocaine 1% 50 ML MDV INJECT PRN (01:38)
[2024-07-15] MEDS ORDERED: Ondansetron 4 MG/2 ML SDV IVPUSH PRN (01:38)
[2024-07-15] MEDS ORDERED: Oxytocin/0.9 % Sodium Chloride 30 UNIT/500 ML BAG IV SCH (01:45)
[2024-07-15] MEDS ORDERED: Ampicillin 2 GM in Sodium Chloride 0.9% 50 ML IV SCH (02:00)
[2024-07-15] MEDS: Lactated Ringers 1,000 ML IV SCH (02:05)
[2024-07-15 02:32] LABS: HEMATOCRIT 38.5 % (37.0-47.0); HEMOGLOBIN 12.8 g/dL (12.0-16.0); MEAN CORPUSCULAR HEMOGLOBIN 31.5 pg (28.0-32.0); MEAN CORPUSCULAR HGB CONC 33.2 g/dL (32.0-36.0); MEAN CORPUSCULAR VOLUME 94.8 fL (83.0-99.0); PLATELET COUNT,PLT 302 K/uL (150-400); RED BLOOD CELL COUNT 4.06 M/uL (4.10-5.30); WHITE BLOOD CELL COUNT,WBC 15.46 K/uL (3.9-11.3)
[2024-07-15] MEDS: Vancomycin 2 GM in Sodium Chloride 0.9% 500 ML IV SCH (02:56)
[2024-07-15] MEDS ORDERED: Phenylephrine HCl In 0.9% NaCl 1 MG/10 ML Syringe IVPUSH PRN (06:02)
[2024-07-15] MEDS ORDERED: ePHEDrine 50 MG/ML SDV IVPUSH PRN ×2 (06:02)
[2024-07-15] MEDS ORDERED: Ropivacaine HCl/PF 400 MG in Premix Bag 1 BAG EPIDUR SCH (06:15)
[2024-07-15] MEDS ORDERED: dexmedeTOMIDine HCl 200 MCG/2 ML SDV EPIDUR SCH (06:15)
== END 2024-07-15 10:46 | disposition home or self-care (01) ==
LOC: MW.OBCHECK 01:26 → MW.OB 01:27 → MW.OBCHECK 01:38
PROVIDERS: ADMIT Obstetrics & Gynecology; ATTEND Obstetrics & Gynecology
DX: O99.343 Other mental disorders complicating pregnancy, third trimester (principal); F41.9 Anxiety disorder, unspecified; Z3A.38 38 weeks gestation of pregnancy
CPT/HCPCS: 36415; 59025; 85027; 86592; 86850; 86900; 86901; 96374; G0378; J3370; J7040; J7120

== ENCOUNTER 2024-07-15 18:06 | Inpatient (IN) | payer MEDICAID ==
[2024-07-15] MEDS ORDERED: Tranexamic Acid IN NACL,ISO-OS 1,000 MG in Premix Bag 1 BAG IV PRN (18:08)
[2024-07-15] MEDS ORDERED: Lidocaine 1% 50 ML MDV INJECT PRN (18:08)
[2024-07-15] MEDS ORDERED: Butorphanol 2 MG/ML SDV IVPUSH PRN (18:08)
[2024-07-15] MEDS ORDERED: Sodium Chloride 0.9% 20 ML SDV IV PRN (18:08)
[2024-07-15] MEDS ORDERED: Misoprostol 200 MCG Tab PO PRN (18:08)
[2024-07-15] MEDS ORDERED: Sodium Chloride 0.9% 10 ML Syringe FLUSH PRN (18:08)
[2024-07-15] MEDS ORDERED: Water For Irrigation,Sterile 1,000 ML Container IRR PRN (18:08)
[2024-07-15] MEDS ORDERED: Sodium Chloride 0.9% 2.5 ML Syringe FLUSH PRN (18:08)
[2024-07-15] MEDS ORDERED: Methylergonovine 0.2 MG/1 ML Amp IM PRN (18:08)
[2024-07-15] MEDS ORDERED: Carboprost Tromethamine 250 MCG/1 mL Vial IM PRN (18:08)
[2024-07-15] MEDS ORDERED: Clindamycin Phosphate in D5W 900 MG in Premix Bag 1 BAG IV ONE ×2 (18:12→18:30)
[2024-07-15] MEDS: Lactated Ringers 1,000 ML IV SCH (18:25)
[2024-07-15] MEDS: Oxytocin/0.9 % Sodium Chloride 30 UNIT/500 ML BAG IV SCH (18:42)
[2024-07-15] MEDS ORDERED: Witch Hazel Medicated Pads 40/Jar TOP PRN (19:53)
[2024-07-15] MEDS ORDERED: Lanolin 100% Cream 7 GM Tube TOP PRN (19:53)
[2024-07-15] MEDS ORDERED: Benzocaine/Menthol 20%-0.5% Spray 78 GM Cannister TOP PRN (19:53)
[2024-07-15] MEDS ORDERED: Oxytocin/0.9 % Sodium Chloride 30 UNIT/500 ML BAG IV SCH (20:00)
[2024-07-15 20:22] LABS: MEAN CORPUSCULAR HEMOGLOBIN 32.5 pg (28.0-32.0); MEAN CORPUSCULAR HGB CONC 34.3 g/dL (32.0-36.0); MEAN CORPUSCULAR VOLUME 94.9 fL (83.0-99.0); MEAN PLATELET VOLUME 10.6 fL (9.4-12.3); PLATELET COUNT,PLT 285 K/uL (150-400); RED BLOOD CELL COUNT 3.69 M/uL (4.10-5.30); WHITE BLOOD CELL COUNT,WBC 20.71 K/uL (3.9-11.3)
[2024-07-15] MEDS: Ibuprofen 800 MG Tab PO PRN (20:23)
[2024-07-15] MEDS: Acetaminophen 500 MG Tab PO PRN (20:24)
[2024-07-15 20:27] LABS: AMPHETAMINES SCREEN, URINE NEGATIVE (CUTOFF=500); BARBITURATE SCREEN,URINE NEGATIVE (CUTOFF=200); BENZODIAZEPINES SCREEN,URINE NEGATIVE (CUTOFF=150); BUPRENORPHINE SCREEN,URINE NEGATIVE (CUTOFF=10); METHADONE SCREEN, URINE NEGATIVE (CUTOFF=200); METHAMPHETAMINES SCREEN, URINE NEGATIVE (CUTOFF=500); OXYCODONE SCREEN,URINE NEGATIVE (CUT0FF=100); PCP SCREEN,URINE NEGATIVE (CUTOFF=25); THC SCREEN,URINE 20 NG/ML NEGATIVE (CUTOFF=50)
[2024-07-16 06:13] LABS: HEMATOCRIT 32.8 % (37.0-47.0); HEMOGLOBIN 10.7 g/dL (12.0-16.0)
[2024-07-16] MEDS: Docusate Sodium 100 MG Cap PO PRN (20:58)
[2024-07-18] MEDS: Escitalopram 10 MG Tab PO SCH (09:53)
[2024-07-18 13:47] VITALS: BP 132/78; PULSE 86
== END 2024-07-18 12:30 | disposition home or self-care (01) | DRG 807 ==
LOC: MW.OBCHECK 18:06 → MW.OB 18:07 → OBSVTOIN 19:29 → MW.OBCHECK 19:29 → MW.OB 19:29 → UNDOADMOB 19:41 → MW.OB 22:00
PROVIDERS: ADMIT Obstetrics & Gynecology; ATTEND Obstetrics & Gynecology
PROC: 10E0XZZ Delivery of Products of Conception, External Approach (ICD-10-PCS; principal; 2024-07-15)
DX: O99.824 Streptococcus B carrier state complicating childbirth (principal); Z37.0 Single live birth; Z3A.38 38 weeks gestation of pregnancy; O77.0 Labor and delivery complicated by meconium in amniotic fluid; O99.324 Drug use complicating childbirth; F41.9 Anxiety disorder, unspecified; F12.90 Cannabis use, unspecified, uncomplicated; O99.344 Other mental disorders complicating childbirth
CPT/HCPCS: 36415; 59025; 59409; 80305-QW; 85014; 85018; 85027; 86592; 86850; 86900; 86901; A9270-GY; J2590; J7120